=== PATIENT | female | born 1960 | race Caucasian/White ===

== ENCOUNTER 2019-11-01 10:43 | Outpatient (CLI) | payer OTHER, BC ==
[2019-11-01] MEDS ORDERED: milk thistle PO (11:21)
[2019-11-01] MEDS ORDERED: DICLOFENAC TD (11:21)
[2019-11-01] MEDS ORDERED: [UNRECOGNIZED DRUG - OTHER] PO (11:21)
[2019-11-01] MEDS ORDERED: ASCO500T8 PO (11:21)
[2019-11-01] MEDS ORDERED: CICL6.1H4 INH (11:21)
[2019-11-01] MEDS ORDERED: ALBU8.5H8 INH (11:21)
[2019-11-01] MEDS ORDERED: Vitamin D3 PO (11:21)
[2019-11-01] MEDS ORDERED: ALPR0.25 PO (11:21)
[2019-11-01] MEDS ORDERED: [UNRECOGNIZED DRUG - OTHER] PO (11:21)
[2019-11-01] MEDS ORDERED: DICL50TA4 PO (11:21)
[2019-11-01] MEDS ORDERED: MULT-803 PO (11:21)
[2019-11-01] MEDS ORDERED: CETI10TA26 PO (11:21)
[2019-11-01] MEDS ORDERED: RED600TA PO (11:21)
[2019-11-01] MEDS ORDERED: GARL500C2 PO (11:21)
[2019-11-01] MEDS ORDERED: CYCL-259 PO (11:21)
[2019-11-01] MEDS ORDERED: [UNRECOGNIZED DRUG - OTHER] PO (11:21)
[2019-11-01] MEDS ORDERED: [UNRECOGNIZED DRUG - OTHER] PO (11:21)
[2019-11-01] MEDS ORDERED: VITA1TAB19 PO (11:21)
[2019-11-01] MEDS ORDERED: BUPR150T73 PO (11:21)
[2019-11-01 12:12] LABS: BASOPHILS # (AUTO) 0.04 x10^3/uL (0-0.1); BASOPHILS % (AUTO) 1 % (0-1); EOSINOPHILS # (AUTO) 0.18 x10^3/uL (0-0.4); EOSINOPHILS % (AUTO) 2 % (1-7); LYMPHOCYTES # (AUTO) 2.43 x10^3/uL (1-3.4); LYMPHOCYTES % (AUTO) 30 % (22-44); MD NO; MEAN CORPUSCULAR HEMOGLOBIN 30.3 pg (27.0-34.8); MEAN CORPUSCULAR HGB CONC 33.4 g/dL (32.4-35.8); MEAN CORPUSCULAR VOLUME 90.8 fL (80-100); MEAN PLATELET VOLUME 8.1 fL (7.4-10.4); MICROSCOPIC AUTO; MONOCYTES # (AUTO) 0.43 x10^3/uL (0.2-0.8); MONOCYTES % (AUTO) 5 % (2-9); NEUTROPHILS # (AUTO) 4.99 x10^3/uL (1.8-6.8); NEUTROPHILS % (AUTO) 62 % (42-75); PLATELET COUNT 320 x10^3/uL (130-400); RED BLOOD COUNT 4.74 x10^6/uL (3.82-5.3); RED CELL DISTRIBUTION WIDTH 13.2 % (9.6-15.2)
[2019-11-01 12:21] LABS: ALANINE AMINOTRANSFERASE 25 U/L (12-78); ALBUMIN 3.8 g/dL (3.4-5.0); ANION GAP 5 mmol/L (5-15); CALCIUM 8.9 mg/dL (8.5-10.1); CHLORIDE 108 mmol/L (98-107); CREATININE 0.89 mg/dL (0.55-1.02)
[2019-11-01 12:23] LABS: ALKALINE PHOSPHATASE 76 U/L (45-117); BILIRUBIN,TOTAL 0.3 mg/dL (0.2-1.0); TOTAL PROTEIN 7.5 g/dL (6.4-8.2)
[2019-11-01 12:29] LABS: INTERNATIONAL NORMALIZED RATIO 0.95 (0.93-1.1); PROTHROMBIN TIME 10.1 Seconds (9.6-11.5)
[2019-11-05] MEDS ORDERED: MIDAZOLAM 1 MG/ML, 2ML ONE (06:52)
[2019-11-05] MEDS ORDERED: FENTANYL PF 250 MCG/5ML ONE ×2 (06:53→08:06)
[2019-11-05] MEDS ORDERED: SUCCINYLCHOLINE 20 MG/ML, 10ML ONE (08:28)
[2019-11-05] MEDS ORDERED: DEXAMETHASONE 4 MG/ML, 1ML ONE (08:28)
[2019-11-05] MEDS ORDERED: ONDANSETRON 2MG/ML, 2ML ONE (08:28)
[2019-11-05] MEDS ORDERED: ROCURONIUM 10MG/ML,5ML ONE (08:28)
[2019-11-05] MEDS ORDERED: CEFAZOLIN 1,000 MG ONE (08:28)
[2019-11-05] MEDS ORDERED: GLYCOPYRROLATE 0.2MG/1ML, 5ML ONE (08:28)
[2019-11-05] MEDS ORDERED: SUGAMMADEX 200 MG/2 ML IVPush ONE (08:28)
[2019-11-05] MEDS ORDERED: PROPOFOL 10 MG/ML, 20ML ONE (08:28)
[2019-11-05] MEDS ORDERED: NEOSTIGMINE 1 MG/ML, 10ML ONE (08:28)
== END 2019-11-01 23:59 | disposition home or self-care (01) ==
LOC: STAR 10:43
PROVIDERS: ATTEND Neurological Surgery
DX: Z01.810 Encounter for preprocedural cardiovascular examination (principal); Z11.59 Encounter for screening for other viral diseases; Z01.811 Encounter for preprocedural respiratory examination; Z01.812 Encounter for preprocedural laboratory examination; M47.892 Other spondylosis, cervical region; R79.1 Abnormal coagulation profile; R82.90 Unspecified abnormal findings in urine; M50.121 Cervical disc disorder at C4-C5 level with radiculopathy; M50.122 Cervical disc disorder at C5-C6 level with radiculopathy
CPT/HCPCS: 36415; 71046; 80053; 81001; 85025; 85610; 85730; 87086; 93005; U0001

== ENCOUNTER 2019-11-05 05:39 | Inpatient (IN) | payer OTHER, BC ==
[~2019-11-05] VITALS: Ht 167.6 cm; Wt 92.4 kg
[~2019-11-05 05:39] MED LIST: ALBU8.5H8 INH; ALPR0.25 PO; ASCO500T8 PO; BUPR150T73 PO; CETI10TA26 PO; CICL6.1H4 INH; CYCL-259 PO; DICL50TA4 PO; DICLOFENAC TD; GARL500C2 PO; MULT-803 PO; RED600TA PO; VITA1TAB19 PO; Vitamin D3 PO; [UNRECOGNIZED DRUG - OTHER] PO; [UNRECOGNIZED DRUG - OTHER] PO; [UNRECOGNIZED DRUG - OTHER] PO; [UNRECOGNIZED DRUG - OTHER] PO; milk thistle PO
[2019-11-05] MEDS ORDERED: CHLORHEXIDINE 15 ML UDC MM STA (06:14)
[2019-11-05] MEDS ORDERED: LACTATED RINGERS 1,000 ML IV SCH (06:14)
[2019-11-05] MEDS ORDERED: BUPIVACAINE/PF-EPI 0.5% 1:200K ONE (06:30)
[2019-11-05] MEDS ORDERED: BACITRACIN 50,000 UNIT ONE (06:31)
[2019-11-05] MEDS ORDERED: FENTANYL PF 100 MCG/2ML ONE ×2 (07:00→09:21)
[2019-11-05] MEDS ORDERED: MIDAZOLAM 1 MG/ML, 2ML ONE (07:00)
[2019-11-05] MEDS ORDERED: SUGAMMADEX 200 MG/2 ML IVPush ONE (07:00)
[2019-11-05] MEDS ORDERED: CEFAZOLIN PMX 1GM/50ML ONE (07:00)
[2019-11-05] MEDS ORDERED: ONDANSETRON 2MG/ML, 2ML ONE ×2 (07:00→10:14)
[2019-11-05] MEDS ORDERED: ROCURONIUM 10 MG/ML,10ML ONE (07:00)
[2019-11-05] MEDS ORDERED: PROPOFOL 10 MG/ML, 100ML IV ONE (07:00)
[2019-11-05] MEDS ORDERED: KETOROLAC 30 MG/1 ML IV PRN (08:00)
[2019-11-05] MEDS ORDERED: OXYcodone 5 MG/5 ML ORAL.SOL UDC PO PRN (08:00)
[2019-11-05] MEDS ORDERED: ACETAMINOPHEN 325 MG TABLET PO PRN ×2 (08:00→09:00)
[2019-11-05] MEDS ORDERED: LABETALOL 5MG/ML, 20ML IV PRN (08:00)
[2019-11-05] MEDS ORDERED: MEPERIDINE/PF 25MG/0.5ML IVPush PRN (08:00)
[2019-11-05] MEDS ORDERED: FENTANYL PF 100 MCG/2ML IV PRN (08:00)
[2019-11-05] MEDS ORDERED: DIAZEPAM 5 MG/ML, 2ML IVPush PRN (08:00)
[2019-11-05] MEDS ORDERED: ALBUTEROL SULFATE 2.5 MG/3 ML NPPB PRN (08:00)
[2019-11-05] MEDS ORDERED: hydrALAzine 20 MG/ML, 1ML IV PRN (08:00)
[2019-11-05] MEDS ORDERED: PROMETHAZINE 25 MG/ML, 1ML IV PRN (08:00)
[2019-11-05] MEDS ORDERED: HYDROmorphone 2 MG/ML, 1ML IVPush PRN (08:00)
[2019-11-05] MEDS ORDERED: PROMETHAZINE 25 MG/ML, 1ML ONE (08:50)
[2019-11-05] MEDS ORDERED: DIAZEPAM 5 MG/ML, 2ML ONE (08:54)
[2019-11-05] MEDS ORDERED: HYDROmorphone 1 MG/ML, 1ML INJ ONE (08:55)
[2019-11-05] MEDS ORDERED: MAGNESIUM HYDROXIDE 8%, 30ML UDC PO PRN (09:00)
[2019-11-05] MEDS ORDERED: HYDROcodone/APAP 5/325 TABLET PO PRN (09:00)
[2019-11-05] MEDS ORDERED: PROMETHAZINE 25 MG/ML, 1ML IM PRN (09:00)
[2019-11-05] MEDS: ASCORBIC ACID 500 MG TABLET PO SCH (09:00)
[2019-11-05] MEDS: BUPROPION SR 150 MG TABLET PO SCH (09:00)
[2019-11-05] MEDS ORDERED: METHOCARBAMOL 1,000 MG in DEXTROSE 5% 100 ML IV ONE (09:00)
[2019-11-05] MEDS ORDERED: HYDROmorphone 1 MG/ML, 1ML INJ IVPush PRN (09:00)
[2019-11-05] MEDS ORDERED: PHARMACY MAY ADJ FOR RENAL FX MC PRN (09:00)
[2019-11-05] MEDS ORDERED: SENNA/DOCUSATE TABLET PO PRN (09:00)
[2019-11-05] MEDS ORDERED: ONDANSETRON 2MG/ML, 2ML IVPush PRN (09:00)
[2019-11-05] MEDS ORDERED: METHOCARBAMOL 750 MG TABLET PO PRN (09:00)
[2019-11-05] MEDS ORDERED: DIPHENHYDRAMINE 50 MG/ML, 1ML IVPush PRN (09:00)
[2019-11-05] MEDS ORDERED: BISACODYL 10 MG SUPP PR PRN (09:00)
[2019-11-05] MEDS: DEXAMETHASONE 4 MG/ML, 1ML IVPush SCH ×3 (10:54→22:28)
[2019-11-05] MEDS: OXYcodone/APAP 5/325MG TABLET PO PRN ×2 (12:49→19:40)
[2019-11-05] MEDS: D5%-0.9% NACL+KCL 20MEQ 1,000 ML IV SCH ×2 (13:06→22:00)
[2019-11-05 13:19] VITALS: BP 143/65
[2019-11-05] MEDS: CEFAZOLIN PMX 1GM/50ML 50 ML IVPB SCH ×2 (15:09→22:28)
[2019-11-05 19:32] VITALS: BP 146/85
[2019-11-05] MEDS: CETIRIZINE 10 MG TABLET PO SCH (19:39)
[2019-11-05 23:52] VITALS: BP 111/49
[2019-11-06] MEDS: OXYcodone/APAP 5/325MG TABLET PO PRN ×2 (01:51→12:06)
[2019-11-06 04:03] VITALS: BP 109/61
[2019-11-06] MEDS: DEXAMETHASONE 4 MG/ML, 1ML IVPush SCH ×2 (05:09→10:44)
[2019-11-06 06:56] VITALS: BP 123/70
[2019-11-06] MEDS: D5%-0.9% NACL+KCL 20MEQ 1,000 ML IV SCH (08:00)
[2019-11-06] MEDS: ASCORBIC ACID 500 MG TABLET PO SCH (08:15)
[2019-11-06] MEDS: BUPROPION SR 150 MG TABLET PO SCH (08:15)
[2019-11-06] MEDS: CETIRIZINE 10 MG TABLET PO SCH (08:15)
[2019-11-06] MEDS ORDERED: OXYC-302 PO (10:16)
[2019-11-06] MEDS ORDERED: METH4TAB2 PO (10:17)
[2019-11-06 12:37] VITALS: BP 145/81
== END 2019-11-06 13:20 | disposition home or self-care (01) | DRG 473 ==
LOC: ORIP 05:39 → EDSTATUS 07:00 → 4NE 10:11 → DCLOUNGE 11-06 13:04
PROVIDERS: ADMIT Neurological Surgery; ATTEND Neurological Surgery
PROC: 0RG20K0 Fusion of 2 or more Cervical Vertebral Joints with Nonautologous Tissue Substitute, Anterior Approach, Anterior Column, Open Approach (ICD-10-PCS; 2019-11-05)
PROC: 0RB30ZZ Excision of Cervical Vertebral Disc, Open Approach (ICD-10-PCS; principal; 2019-11-05 07:00)
DX: M48.02 Spinal stenosis, cervical region (principal); M50.123 Cervical disc disorder at C6-C7 level with radiculopathy
CPT/HCPCS: 72040; C1713; G0378; J0690; J1100; J1170; J2250; J2405; J2550; J2704; J2710; J3010; J3360; C1762; C1889; J0330; J3480; J7120